=== PATIENT | male | born 1970 | race Caucasian/White ===

== ENCOUNTER → 2017-12-13 | Outpatient (CLI) | payer OTHER ==
[~2017-12-13] MED LIST: AMITRIPTYLINE H10 M3 PO; CYCLOBENZAPRINE5 MG PO; MEDROLDOSEPACK PO; MOBIC15 MG PO; OXYCODONE HCL E10 MG PO; PERCOCET 10-321 EACH PO
--- NOTE | 2017-12-14 08:40 | PAINCON ---
[address] [address] PAIN MANAGEMENT CONSULTATION Name: KENDALAPRIL Kaba Room: [facility] Madie#: [id number] Admission: 12/13/17 Attend Phys: Cresencio Alexander MD Discharge: Date of : 72 Report #: [id number] THIS REPORT FOR: //name// CC: Cresencio Hwang DO DATE OF SERVICE: 12/13/2017 FOLLOWUP COMPLAINT: The pain did really well for a while, but now it has come back. FOLLOWUP HISTORY: The patient is a 47-year-old gentleman who has been seen in the pain clinic because of cervical radiculopathy. He had a cervical epidural steroid injection in 02/2017. He works as a printing equipment mechanic. He finds that things have been going reasonably well. Over the last few weeks, he has noted worsening of his pain, which has increased. He felt he took Meloxicam. He found that this medication was beneficial. Did have some difficulty in getting that again from his pharmacy and therefore has stopped using it. All in all, he feels that it was beneficial and would like to continue it. He feels that the amitriptyline is helpful. He takes it on those days when he notes he is not going to have to work the following day. It does make him feel somewhat sluggish the day after its use. He felt the Medrol Dosepak, which he has been given has been efficacious. He feels that an occasional Percocet has been beneficial. He still has 2 or 3 of 30 Percocet he was given in September. At this juncture, he feels that another cervical epidural steroid injection will be helpful. He is having pain and discomfort in the right shoulder and upper back. Also, has pain that is radiating down into his right arm and hand. Rates his pain as a 1 today. It increases when he is more active. States that he is happy to be able to undergo another injection today to improve his condition. ALLERGIES: No known drug allergies. CURRENT MEDICATIONS: 1. Flexeril 5 mg 1 p.o. t.i.d. 2. Meloxicam 15 mg 1 p.o. daily. The patient finished a Medrol Dosepak. 3. Oxycodone . The patient was given 30 tabs in August and has about 3 tablets left. He has had no problems with their use. PHYSICAL EXAMINATION: VITAL SIGNS: Height 5 feet 11 inches, weight 229 pounds, BMI is 32.1. Blood pressure 155/110, heart rate 75, respiratory rate 16, room air saturation is 98%, temperature 98.3. GENERAL APPEARANCE: Well-developed, well-nourished male, appears stated age, oriented x 3, alert and appropriate. Affect is appropriate. NECK: Without J[place] [address] PAIN MANAGEMENT CONSULTATION Name: APRIL EDMONDS Room: [facility]#: [id number] Admission: 12/13/17 Attend Phys: Cresencio Alexander MD Discharge: Date of : 72 Report #: [id number] LUNGS: Clear to auscultation. HEART: Regular rate. MUSCULOSKELETAL: The patient has pain and discomfort in the right shoulder near the scapula with movement of his head to the left. Also, notes pain radiating down into the deltoid and shoulder area and forearm. Has some discomfort on the left side as well. Muscle strength appears 5/5 in the major muscle groups of the upper extremity. Back Padder strength is within normal limits at 5/5. Motor exam for the deltoid, biceps, triceps, finger flexors and interosseous are within limits. SKIN: Color appears normal. CLINICAL ASSESSMENT: 1. History of osteoarthritis none. 2. History of rheumatoid arthritis, none. 3. 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 4. Fall risk. The patient denies any problems with dizziness or need for help with standing. Has not fallen in the last 3 months. 5. The patient is not on a blood thinner. 6. Opioid therapy not use greater than 6 weeks. The patient has 3 tablets from 8. Total of 30, which were given in 09/2017. FUNCTIONAL ASSESSMENT: 1. The patient is doing reasonably well. 2. Denies use of recreational drugs. Does not use tobacco, alcohol use minimal. IMPRESSION: Cervical radiculopathy, improves with cervical epidural steroid injections, last one was performed in 02/2017 with good result. RECOMMENDATIONS: Discussed the treatment option with the patient. He feels that his pain is beginning to return. He found that Meloxicam was quite helpful. He ran out of this prescription for this medication. He would like to have this prescription refilled. He had no GI problems with it. He felt Elavil is helpful. He takes it on occasion. It does cause him to be a little bit all over a day or so after taking the medications so he will takes it p.r.n. He has had no complication from the previous injections. He does continue to work and feels that his pain level decreased significantly after the cervical epidural steroid injection. He is not taking any opioid medications on a regular basis. He was given 30 tablets in 08/2017. He still has about 3-4 pills at home. He feels overall that things are going reasonably well and would like to proceed with another injection. PROCEDURE: We discussed treatment options with the patient. They include but are not limited to infection, increased muscle soreness, headache, bleeding, muscle trauma and nerve damage with weakness. [place] [address] PAIN MANAGEMENT CONSULTATION Name: APRIL EDMONDS Room: [facility]#: [id number] Admission: 12/13/17 Attend Phys: Cresencio Alexander MD Discharge: Date of : 72 Report #: [id number] PROCEDURE NOTE: The patient was placed in the prone position. His neck was sterilely prepped with Betadine solution. This area was then draped in a sterile fashion. A 25-gauge needle was then advanced into the area and infiltrated this area providing a skin wheal. Fluoroscopy was used to evaluate appropriate needle placement using an anterior and lateral approach. A total of 120 mg triamcinolone was injected after a 17-gauge Tuohy with loss of resistance technique was placed at the C7-T1 interspace. The patient tolerated the procedure well. There were no complications or complaints during the procedure. The patient's neck was then cleansed. A Band-Aid was placed. He was then taken to the recovery room where he remained for an appropriate amount of time. The patient has been given a script for 30 tablets of 10/325 oxycodone. He will renew use of meloxicam and a script for 6 months, has been written for that as well as for Flexeril. We would like to thank you for letting us participate in his care. He will call us if he has any concerns. <ELECTRONICALLY SIGNED> By: Cresencio Alexander MD 12/14/17 0840 [id number]. Jason Alexander MD /PMT
== END | disposition home or self-care (01) ==
LOC: M.PC 01:38
DX: M54.12 Radiculopathy, cervical region (principal); G89.29 Other chronic pain; Z79.891 Long term (current) use of opiate analgesic

== ENCOUNTER → 2018-07-20 | Outpatient (CLI) | payer OTHER ==
--- NOTE | 2018-07-21 17:38 | PAINCON ---
[address] [address] PAIN MANAGEMENT CONSULTATION Name: KENDALAPRIL Kbaa [id number] Admission: 07/20/18 Attend Phys: Cresencio Alexander MD Discharge: Date of : 72 Report #: [id number] THIS REPORT FOR: //name// CC: Cresencio Hwang DO DATE OF SERVICE: 07/20/2018 FOLLOWUP COMPLAINT: Pain is down in my low back and radiating down into my left leg. FOLLOWUP HISTORY: The patient is a 47-year-old gentleman who has been followed in the pain clinic because of cervical radiculopathy. He has a history of cervical radiculopathy. He has undergone a series of cervical epidural steroid injections. He has found that things have improved. 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 Notes that use of meloxicam and nonsteroidal anti-inflammatory medications have been beneficial. Overall, things have been going relatively well until recently. He has begun to experience pain and discomfort in his lower back with pain has been radiating down in the L5-S1 nerve root on the left. States that it makes his activity level difficult. He is having pain that radiates down his left hip from the buttock into his foot. He feels that his foot is asleep. He makes work very difficult secondary to the severe burning that he is experiencing. Continues to use cyclobenzaprine. Has continued to use Aleve. Rates his pain as a 7 in the lower portion of his back. Notes that any movement and position can exacerbate this discomfort. Notes that the pain is improved with use of medications, heat and cold. Has seen a chiropractor. Did not glean any long-term benefit from those treatments. ALLERGIES: No known drug allergies. CURRENT MEDICATIONS: Flexeril 5 mg t.i.d., ibuprofen/Aleve. PHYSICAL EXAMINATION: GENERAL: The patient is a well-developed, well-nourished white male. Appears his stated age. He is alert and oriented x 3. Affect is appropriate. Speech is fluent. HEENT: Normocephalic, atraumatic. Extraocular eye muscles intact. Sclerae nonicteric. Mucous membranes are moist. Upper extremity muscle strength is judged to be 5/5 for the major muscle groups. NECK: Good range of motion. HEART: Regular rate. S1, S2. ABDOMEN: Nontender. CHEST: Clear to auscultation without rhonchi or rales. EXTREMITIES: Lower extremity muscle strength without is judged to be 5/5 for the major muscle groups. The patient is walking with [place] [address] PAIN MANAGEMENT CONSULTATION Name: APRIL EDMONDS [id number] Admission: 07/20/18 Attend Phys: Cresencio Alexander MD Discharge: Date of : 72 Report #: [id number] pain and discomfort radiating down to the left leg. Forward bending causes increased pain and discomfort. Straight leg raise on the left is positive. The patient has a burning sensation down the posterior portion of his leg in the L5-S1 distribution. The patient is without significant scoliosis, kyphosis or lordosis. PAIN CLINIC ASSESSMENT: 1. The patient is not being treated for osteoarthritis or rheumatoid arthritis. 2. Vital signs: Blood pressure is 154/98, heart rate 84, respiratory rate 18, room air saturation 100%, temperature 99, height 5 feet , weight 212 pounds, BMI is 99. 3. Fall. The patient has not fallen in the last 3 months. 4. Blood thinner. The patient is not on a blood thinning medication. 5. Hypertension. The patient is not being treated for hypertension. PAIN CLINIC ASSESSMENT: 1. Alcohol. The patient denies use of alcoholic beverages. 2. Recreational drug use. The patient denies use of recreational drugs. 3. Tobacco: The patient denies use of tobacco. IMPRESSION: 1. Lumbar radiculopathy, L5-S1 distribution. 2. History of cervical radiculopathy, improved and doing well at this juncture. RECOMMENDATIONS: We discussed treatment options with the patient. Risks and benefits of a lumbar epidural steroid injection were discussed. Possible complications of the procedure were reviewed. They include but are not limited to infection, increased muscle soreness, headache, bleeding, worsening of pain, no improvement in pain and the patient elects to proceed. PROCEDURE NOTE: The patient was placed in the prone position. Fluoroscopy was used to identify the L5-S1 area on the left. This area had been sterilely prepped with Betadine and infiltrated with 0.25% bupivacaine. A 17-gauge Tuohy with loss of resistance technique was used to gain access to the epidural space. There was no CSF, heme or paresthesia. Total of 80 mg Depo-Medrol, 40 mg triamcinolone and 2 mL of 0.25% bupivacaine was injected. The patient tolerated the procedure well. There were no complications. A script for Percocet has been written as well as meloxicam and a renewal of cyclobenzaprine. The patient will call us if he has any problems. We would like to thank you for letting us participate in his care. We hope he continues to improve. <ELECTRONICALLY SIGNED> By: Cresencio Alexander MD 07/21/18 1738 [id number] 1238N. Jason Alexander MD /[facility]
== END ==
LOC: M.PC 04:36
DX: M54.16 Radiculopathy, lumbar region (principal); I10 Essential (primary) hypertension; Z87.39 Personal history of other diseases of the musculoskeletal system and connective tissue; Z79.899 Other long term (current) drug therapy

== ENCOUNTER → 2018-09-28 | Outpatient (CLI) | payer OTHER ==
--- NOTE | ~2018-09-28 | PAINCON ---
[address] [address] PAIN MANAGEMENT CONSULTATION Name: APRIL EDMONDS Room: [facility].#: [id number] Admission: 09/28/18 Attend Phys: Cresencio Alexander MD Discharge: Date of : 72 Report #: [id number] THIS REPORT FOR: //name// CC: Cresencio Hwang DO DATE OF SERVICE: 09/28/2018 CHIEF COMPLAINT: "The pain has just returned down my right arm." HISTORY OF PRESENT ILLNESS: The patient is a 48-year-old gentleman who has been followed in the Pain Clinic because of cervical radiculopathy. He has noted over the last few weeks worsening of pain and discomfort. It has returned and is radiating down into his right arm involving his hands, fingers on the right side involving the ring finger and the little finger. He has undergone epidural steroid injections in the past, he gleaned significant benefit from these. He has returned today with the hope that things would improve as well. He has had no complications since we saw him last. He rates his pain as a 6/10 at this juncture. ALLERGIES: No known drug allergies. CURRENT MEDICATIONS: Flexeril 5 mg 1 p.o. t.i.d., Meloxicam 15 mg daily, Percocet 10/325 q. 4-6 hours p.r.n. PAIN CLINIC ASSESSMENT AND PQRS: 1. Height 5 feet 11 inches, weight 210 pounds, BMI is 29.3. 2. Vital signs: Blood pressure 155/89, heart rate 76, respiratory rate 16, room air saturation 100%, temperature 98.4. 3. Pain intensity: 6/10. 4. Fall risk: The patient has not fallen in the last 3 months. 5. Blood thinner: The patient is not on a blood thinning medication. 6. Hypertension: The patient is not being treated for hypertension. 7. Opioid therapy greater than 6 weeks: The patient is receiving opioid medications and takes them p.r.n. 8. Risk assessment tool: Low for opioid use. 9. Functional assessment tool. 10. Recreational drug use: The patient denies use of recreational drugs. 11. Tobacco: The patient denies use of tobacco. 12. Alcohol: The patient denies use of alcoholic beverages. PHYSICAL EXAMINATION: GENERAL: The patient is a well-developed, well-nourished, white male. He appears his stated age. He is alert and oriented x 3. Affect is appropriate[place] [address] PAIN MANAGEMENT CONSULTATION Name: APRIL EDMONDS Room: [facility]#: [id number] Admission: 09/28/18 Attend Phys: Cresencio Alexander MD Discharge: Date of : 72 Report #: [id number] HEENT: Normocephalic, atraumatic. Extraocular eye muscles intact. Sclerae nonicteric. Mucous membranes are moist. NECK: The patient has some decreased range of motion in his neck. He has pain and discomfort that is radiating down the right shoulder to the forearm down into his fingers, which is the ring and the little finger. Notes some numbness and tingling, decreased sensory perception and muscle strength in this area. HEART: Regular rate. S1 and S2. LUNGS: Clear to auscultation without rhonchi or rales. ABDOMEN: Nontender. Bowel sounds are present. EXTREMITIES: Upper extremity muscle strength on the left is judged to be 5/5 for the major muscle groups and 5-/5 for the right upper extremity. Lower extremity muscle strength is judged to be 5/5 for the major muscle groups in the lower extremity. BACK: The patient does have a history of lumbar radiculopathy, L4, L5, and S1, not problematic today. The patient is without significant scoliosis, kyphosis or lordosis. RECOMMENDATIONS: We discussed treatment options with the patient. Risks and benefits of a cervical epidural steroid injection were discussed. They include but are not limited to infection, increased muscle soreness, headache, bleeding, worsening of pain, and paralysis, and the patient elects to proceed. PROCEDURE NOTE: The patient was assisted in getting on the examination table. Fluoroscopy using anterior and posterior as well as lateral viewing were implemented. The patient's neck had been sterilely prepped with chlorhexidine solution. A pillow was placed under her shoulders to bolster and improve positioning. 0.25% bupivacaine was infiltrated at the C7-T1 interspace. A 17-gauge Tuohy with loss of resistance technique was used to gain access to the epidural space. There was no CSF, heme or paresthesia. A total of 120 mg was injected. The patient tolerated the procedure well. There were no complications. He remained in the Pain Clinic for an appropriate amount of time. He was provided a script for Flexeril 5 mg 1 p.o. t.i.d., Meloxicam 15 mg 1 p.o. daily, and oxycodone 10 mg one p.o. q. 6 hours p.r.n. pain, total of 30 tablets. He will call us if he has any concerns. We would like to thank you for letting us participate in his care. We hope he continues to improve. By: [id number]. Jason Alexander MD /carlos alberto
== END | disposition home or self-care (01) ==
LOC: M.PC 05:36
DX: M54.12 Radiculopathy, cervical region (principal); I10 Essential (primary) hypertension; Z98.890 Other specified postprocedural states; Z79.899 Other long term (current) drug therapy; Z79.891 Long term (current) use of opiate analgesic

== ENCOUNTER → 2018-10-31 | Outpatient (CLI) | payer OTHER ==
--- NOTE | ~2018-10-31 | PAINCON ---
[address] [address] PAIN MANAGEMENT CONSULTATION Name: KENDALAPRIL Kaba Room: [facility].#: [id number] Admission: 10/31/18 Attend Phys: Cresencio Alexander MD Discharge: Date of : 72 Report #: [id number] THIS REPORT FOR: //name// CC: Cresencio Hwang DATE OF SERVICE: 10/31/2018 CHIEF COMPLAINT: Lumbar radiculopathy. I am still having pain in my neck as well. FOLLOWUP HISTORY: The patient is a 48-year-old gentleman who has been followed in the Pain Clinic because of chronic pain. Has had cervical radicular pain. Underwent a cervical epidural steroid injection with about 50% relief in 09/2018. Notes that he has been looking up and reaching his right arm and notes increased pain. Notes that his thumb and first two digits are numb. Rates his pain today as a 1/10. Feels that hydrocodone, Flexeril and meloxicam can be of some benefit. Overall, he feels his pain is about 50% improved. At this juncture, the pain continues to be problematic and he feels that may be an evaluation by a surgeon might be beneficial. ALLERGIES: No known drug allergies. MEDICATIONS: Flexeril 5 mg 1 p.o. t.i.d., meloxicam 15 mg daily, Percocet 10/325 q. 4 hours. PAIN CLINIC ASSESSMENT/PQRS: 1. Height 5 feet 11 inches, weight 211 pounds, BMI is 29.5. 2. Vital signs: Blood pressure 158/94, heart rate 78, respiratory rate 16, room air saturation is 100%. Temperature is 98.3. 3. Pain intensity, 11/23. 4. Fall risk. The patient has not fallen in the last 3 months. 5. Blood thinner. The patient is not on a blood thinning medication. 6. Hypertension. The patient is not being treated for hypertension. 7. Opioid greater than 6 weeks. The patient has received medication from one source, the Pain Clinic. 8. Risk assessment tool, low for opioid use. 9. Functional assessment tool. 10. Recreational drug use. The patient denies use of recreational drugs. 11. Tobacco: The patient denies use of tobacco. 12. Alcohol. The patient denies use of alcoholic beverages. PHYSICAL EXAMINATION: GENERAL: The patient is a well-developed, well-nourished white male. Appears his stated age. He is alert and oriented x 3. His affect is appropriate[place] [address] PAIN MANAGEMENT CONSULTATION Name: APRIL EDMONDS Room: [facility]#: [id number] Admission: 10/31/18 Attend Phys: Cresencio Alexander MD Discharge: Date of : 72 Report #: [id number] HEENT: Normocephalic, atraumatic. Extraocular eye muscles intact. The patient notes some increased pain and discomfort with decreasing range of motion in his neck. Notes that he is having pain that is beginning now to radiate down into his right arm with numbness and tingling involving his thumb and index fingers. HEART: Regular rate. S1, S2. LUNGS: Clear to auscultation without rhonchi or rales. ABDOMEN: Nontender. Bowel sounds present. EXTREMITIES: Upper extremity muscle strength is judged to be 5-/5 on the right side with numbness and tingling down into his fingers, left side 5/5. Lower extremity muscle strength throughout is 5/5. The patient is without significant lordosis, kyphosis or scoliosis. RECOMMENDATIONS: We discussed treatment options with the patient. He has noticed that the cervical component of his pain is more problematic. Has numbness involving his right arm, thumb, index and middle finger. These are more problematic. With the patient's movement, extension, flexion of his neck notes that the pain is becoming more of a problem. At this juncture, he feels that a visit to a surgeon might be reasonable. We discussed the risks and benefits of a cervical epidural steroid injection with the patient. At this juncture, he will follow up with a surgeon. Should his pain continue and after surgical consultation an epidural steroid injection is warranted. The patient will return to the pain clinic, at which time, he will then undergo cervical epidural steroid injection or lumbar epidural steroid injection should it be needed. We would like to thank you for letting us participate in his care. We hope he continues to improve. By: [id number]. Jason Alexander MD /nt
== END ==
LOC: M.PC 10-12 08:10
DX: M54.16 Radiculopathy, lumbar region (principal)